=== PATIENT | male | born 1980 | race Caucasian/White ===

== ENCOUNTER 2018-01-09 22:02 | Emergency (ER) | payer BC, OTHER ==
[2018-01-09] MEDS ORDERED: Famotidine/PF 20 mg/2ml Vial ONE (22:22)
[2018-01-09] MEDS ORDERED: diphenhydrAMINE 50 MG/ML VIAL ONE (22:22)
[2018-01-09] MEDS ORDERED: methylPREDNISolone Sod Succ/PF 125 MG/2 ML VIAL ONE (22:23)
== END 2018-01-09 23:26 | disposition home or self-care (01) ==
LOC: SCSER 22:02
DX: T78.40XA Allergy, unspecified, initial encounter (principal); E78.5 Hyperlipidemia, unspecified; J45.909 Unspecified asthma, uncomplicated; F17.220 Nicotine dependence, chewing tobacco, uncomplicated; Z79.899 Other long term (current) drug therapy
CPT/HCPCS: 96374; 96375; J1200; J2930; S0028